=== PATIENT | female | born 1965 | race African-American/Black ===

== ENCOUNTER 2018-06-11 19:10 | Emergency (ER) | payer MEDICARE, MEDICAID ==
[~2018-06-11] VITALS: Ht 157.5 cm; Wt 70.0 kg
[2018-06-11] MEDS ORDERED: FAMOTIDINE 20MG/2ML VIAL IV STA (23:58)
[2018-06-11] MEDS ORDERED: KETOROLAC 30MG/ML VIAL IV STA (23:58)
[2018-06-11] MEDS ORDERED: ONDANSETRON HCL 4MG/2ML INJ IV STA (23:58)
[2018-06-11] MEDS ORDERED: SODIUM CHLORIDE 0.9% 1,000 ML IV ONE (23:58)
[2018-06-12] MEDS ORDERED: ACETAMINOPHEN 325MG TABLET PO ONE (00:30)
[2018-06-12 00:40] LABS: BASOPHILS % 0.9 % (0.0-2.0); HEMATOCRIT. 47.2 % (36.0-48.0); HEMOGLOBIN. 15.2 g/dL (12.0-16.0); LYMPHOCYTES % 21.1 % (20.0-50.0); MEAN CORPUSCULAR HEMOGLOBIN 25.5 pg (28.0-32.0); MEAN CORPUSCULAR VOLUME 79.4 fL (81.0-99.0); MEAN PLATELET VOLUME 8.7 fl (7.4-10.4); MONOCYTES % 7.7 % (2.0-8.0); NEUTROPHILS % 70.3 % (40.0-76.0); PLATELET 298 x1000/uL (130-400); RED BLOOD CELL COUNT 5.94 mill/uL (4.2-5.4); RED CELL DISTRIBUTION WIDTH 14.3 % (11.6-14.6)
[2018-06-12 00:45] LABS: CHLORIDE 106 mEq/L (98-107)
[2018-06-12 01:06] LABS: CLARITY URINE CLOUDY (CLEAR); COLOR URINE YELLOW (YELLOW); KETONES URINE 2+ (NEGATIVE); LEUKOCYTE ESTERASE URINE NEGATIVE (NEGATIVE); NITRITE URINE NEGATIVE (NEGATIVE); OCCULT BLOOD URINE NEGATIVE (NEGATIVE); PROTEIN URINE TRACE (NEGATIVE)
[2018-06-12 01:08] LABS: HCG SCREEN INDETERMINATE
[2018-06-12 02:13] VITALS: BP 141/86
== END 2018-06-12 02:14 | disposition home or self-care (01) ==
LOC: ER 19:10
DX: R10.0 Acute abdomen (principal); R11.10 Vomiting, unspecified; R19.7 Diarrhea, unspecified; R79.89 Other specified abnormal findings of blood chemistry; Z90.710 Acquired absence of both cervix and uterus
CPT/HCPCS: 36415; 80053; 81003; 81025; 83690; 84702; 84703; 85025; 96374; 96375; 99283; J2405; J3490; J7030; J1885